=== PATIENT | female | born 2000 | race Two or more races ===

== ENCOUNTER 2019-08-11 22:33 | Emergency (ER) | payer MEDICAID ==
[~2019-08-11] VITALS: Ht 167.6 cm; Wt 59.4 kg
[2019-08-11 22:57] VITALS: BP 114/76
[2019-08-11] MEDS ORDERED: GELATIN SPONGE,ABSORBABLE 1 SPONGE SPONGE TP ONE (23:41)
[2019-08-12] MEDS ORDERED: CELLULOSE,OXIDIZED 1 PKT EACH MC ONE
--- NOTE | 2019-08-12 00:28 | NUR ---
Patient discharged to home in stable condition. Written and verbal after care instructions given. Patient verbalizes understanding of instruction.
--- NOTE | 2019-08-12 00:28 | NUR ---
Pt ambulatory with a steady gait
== END 2019-08-12 00:29 | disposition home or self-care (01) ==
LOC: ER 22:38
DX: K91.841 Postprocedural hemorrhage of a digestive system organ or structure following other procedure (principal)